=== PATIENT | female | born 1930 | race Caucasian/White ===

== ENCOUNTER 2019-06-22 03:10 | Inpatient (IN) ==
[2019-06-22] MEDS ORDERED: Isovue-370 500 ML BOTTLE IVP ONE (04:27)
[2019-06-22 04:31] LABS: Hematocrit 40.6 % (35.3-44.9); Hemoglobin 13.3 g/dL (11.5-15.4); Mean Corpuscular HGB Conc 32.8 g/dL (31.6-35.5); Mean Corpuscular Hemoglobin 29.8 pg (28.0-33.3); Mean Platelet Volume 10.6 fL (9.4-12.4); Platelet Count 315 K/mcL (140-400); Prothrombin Time 10.8 Seconds (9.4-12.1); Red Blood Count 4.46 M/mcL (3.82-4.97); Red Cell Distribution Width 12.2 % (11.5-14.5); White Blood Count 7.6 K/mcL (4.3-11.1)
[2019-06-22 04:34] LABS: Activated Partial Thrombo Time 35.1 Seconds (26.0-36.0)
[2019-06-22 04:38] LABS: BUN/Creatinine Ratio 22 (6-26); Blood Urea Nitrogen 18 mg/dL (8-23); Calcium 8.8 mg/dL (8.6-10.3); Carbon Dioxide 24 mEq/L (23-29); Chloride 107 mEq/L (98-107); Glucose 93 mg/dL (70-105); Osmolality,Calculated 288 (280-300); Potassium 4.5 mEq/L (3.5-5.1); Sodium 138 mEq/L (136-145); Troponin I < 0.03 ng/mL (< 0.04); eGFR For African Americans > 60 (> 60); eGFR For Non-African Americans > 60 (> 60)
[2019-06-22] MEDS ORDERED: Acetaminophen 325 MG TABLET PO PRN (07:31)
[2019-06-22] MEDS ORDERED: Naloxone 0.4 MG/ML INJ IVP PRN (07:31)
[2019-06-22] MEDS ORDERED: *HR* LORazepam 2 MG/ML VIAL IVP ONE (09:13)
[2019-06-22] MEDS ORDERED: *HR* LORazepam 2 MG/ML VIAL ONE (09:17)
[2019-06-22] MEDS: amLODIPine 5 MG TABLET PO SCH (12:50)
[2019-06-22] MEDS: Aspirin Enteric Coated 81 MG Tablet PO SCH (12:50)
[2019-06-22] MEDS: *HR* Heparin 5,000 UNIT/ML VIAL SQ SCH ×2 (15:32→20:54)
[2019-06-23] MEDS: *HR* Heparin 5,000 UNIT/ML VIAL SQ SCH ×3 (04:42→21:22)
[2019-06-23 06:09] LABS: Basophils # 0.1 K/mcL (0.0-0.2); Basophils % 1.4 %; Eosinophils # 0.7 K/mcL (0.0-0.6); Eosinophils % 10.4 %; Hematocrit 39.1 % (35.3-44.9); Hemoglobin 12.5 g/dL (11.5-15.4); Immature Granulocytes % 0.3 % (0-4); Lymphocytes # 1.8 K/mcL (0.6-4.6); Lymphocytes % 24.9 %; Mean Corpuscular Hemoglobin 29.9 pg (28.0-33.3); Mean Corpuscular Volume 93.5 fL (83.0-100.0); Mean Platelet Volume 10.4 fL (9.4-12.4); Monocytes # 0.6 K/mcL (0.0-1.3); Neutrophils # 3.9 K/mcL (1.6-8.9); Platelet Count 307 K/mcL (140-400); Red Blood Count 4.18 M/mcL (3.82-4.97); Red Cell Distribution Width 12.2 % (11.5-14.5)
[2019-06-23 06:12] LABS: Estimated Average Glucose 123 mg/dl
[2019-06-23 06:29] LABS: Alanine Aminotransferase 9 Units/L (7-52); Albumin 3.6 g/dL (3.5-5.7); Albumin/Globulin Ratio 1.4 (1.1-2.2); Alkaline Phosphatase 70 Units/L (34-104); Aspartate Amino Transferase 15 Units/L (13-39); BUN/Creatinine Ratio 20 (6-26); Bilirubin,Total 0.4 mg/dL (0.3-1.0); Blood Urea Nitrogen 17 mg/dL (8-23); Carbon Dioxide 27 mEq/L (23-29); Chloride 105 mEq/L (98-107); Chol/HDL Ratio 3.6 (0-4.9); Cholesterol 192 mg/dL (< 200); Globulin 2.6 g/dL (2.4-3.5); Glucose 92 mg/dL (70-105); HDL Cholesterol 53 mg/dL (40-59); LDL Cholesterol,Calculated 119 mg/dL (0-99); Osmolality,Calculated 287 (280-300); Phosphorous 3.6 mg/dL (2.7-4.5); Potassium 3.9 mEq/L (3.5-5.1); Sodium 138 mEq/L (136-145); Total Protein 6.2 g/dL (6.4-8.9); Triglycerides 100 mg/dL (< 150); eGFR For African Americans > 60 (> 60); eGFR For Non-African Americans > 60 (> 60)
[2019-06-23] MEDS: Aspirin Enteric Coated 81 MG Tablet PO SCH (10:00)
[2019-06-23] MEDS: amLODIPine 5 MG TABLET PO SCH (10:00)
[2019-06-23 10:31] LABS: Bilirubin,Urine Negative (Negative); Blood,Urine Trace (Negative); Clarity,Urine Cloudy (Clear); Color,Urine Yellow (Yellow); Glucose,Urine (UA) Normal (Normal); Ketones,Urine Negative (Negative); Leukocyte Esterase,Urine Large (Negative); Nitrite,Urine Positive (Negative); Protein,Urine Negative (Neg-Trace); Specific Gravity,Urine 1.023 (1.010-1.025); Urobilinogen,Urine Normal (Normal)
[2019-06-23 10:33] LABS: Bacteria,Urine Many per hpf (None-Few); Hyaline Casts,Urine None Seen per lpf (None-Few); RBC,Urine 0-3 per hpf (0-3); Squamous Epithelial Cell,Urine Moderate per lpf (None-Few); WBC,Urine TNTC per hpf (0-3)
[2019-06-23] MEDS ORDERED: *HR* LORazepam 2 MG/ML VIAL IVP PRN (17:22)
[2019-06-23] MEDS: cefTRIAXone 1,000 MG in Water for inj. (sterile) 10 ML IVP SCH (23:25)
[2019-06-24] MEDS: *HR* Heparin 5,000 UNIT/ML VIAL SQ SCH ×3 (04:50→21:50)
[2019-06-24] MEDS ORDERED: cefTRIAXone 1,000 MG in Water for inj. (sterile) 10 ML IVP SCH (09:00)
[2019-06-24] MEDS: cefTRIAXone 1,000 MG in Water for inj. (sterile) 10 ML IVP SCH (09:14)
[2019-06-24] MEDS: Aspirin Enteric Coated 81 MG Tablet PO SCH (09:15)
[2019-06-24] MEDS: amLODIPine 5 MG TABLET PO SCH (09:15)
[2019-06-25] MEDS: *HR* Heparin 5,000 UNIT/ML VIAL SQ SCH ×2 (06:07→13:16)
[2019-06-25 07:02] VITALS: BP 138/74
[2019-06-25] MEDS: amLODIPine 5 MG TABLET PO SCH (08:13)
[2019-06-25] MEDS: cefTRIAXone 1,000 MG in Water for inj. (sterile) 10 ML IVP SCH (08:14)
[2019-06-25] MEDS: Aspirin Enteric Coated 81 MG Tablet PO SCH (08:14)
== END 2019-06-25 15:57 | disposition home health service (06) | DRG 65 ==
LOC: CDU 03:10 → EMEROOARM 03:10 → CDU 06:40 → SUATTDRO 12:33 → 2NENU 16:00
PROVIDERS: ADMIT Internal Medicine; ATTEND Internal Medicine